=== PATIENT | male | born 1995 | race Caucasian/White ===

== ENCOUNTER 2021-04-13 07:06 | Emergency (ER) | payer OTHER ==
[~2021-04-13] VITALS: Ht 182.9 cm; Wt 80.6 kg
--- NOTE | 2021-04-13 07:22 | NUR ---
PA AT BS FOR EVAL
--- NOTE | 2021-04-13 07:26 | NUR ---
PT AMBULATORY TO ROOM FROM TRIAGE, MONITORS IN PLACE. CALL LIGHT WITHIN REACH. PT C/O COUGH FOR 2 WEEKS. DENIES SOB/CP.
--- NOTE | 2021-04-13 07:35 | NUR ---
PT SWABBED FOR COVID, SAMPLE WALKED TO LAB
--- NOTE | 2021-04-13 07:39 | NUR ---
XRAY AT BS
[2021-04-13 08:08] VITALS: BP 105/32
--- NOTE | 2021-04-13 08:30 | NUR ---
PT RESTING ON GURNEY, NADN/VSS. CALL LIGHT WITHIN REACH. BED IN LOWEST POSITION. COMFORT MEASURES PROVIDED.
--- NOTE | 2021-04-13 09:00 | NUR ---
[facility] given discharge instructions and RX, they have confirmed that they understand the instructions. Patient ambulatory with steady gait.
== END 2021-04-13 09:02 | disposition home or self-care (01) ==
LOC: ED 08:45
DX: J06.9 Acute upper respiratory infection, unspecified (principal); K21.9 Gastro-esophageal reflux disease without esophagitis; Z20.822 Contact with and (suspected) exposure to COVID-19
CPT/HCPCS: 71045; 87635; 99284